=== PATIENT | male | born 1965 | race Caucasian/White ===

== ENCOUNTER 2018-05-06 16:29 | Observation (INO) ==
[2018-05-06] MEDS ORDERED: Aspirin 325 MG TABLET PO ONE (16:57)
[2018-05-06] MEDS: Nitroglycerin 0.4 MG TAB.SUBL SL PRN ×2 (17:03→22:51)
--- NOTE | 2018-05-06 17:06 | Emergency Department Note ---
Disposition Clinical Impression: Chest pain Qualifiers: Chest pain type: unspecified Qualified Code(s): R07.9 - Chest pain, unspecified Disposition: Admitted As Inpatient Condition: Good Chest Pain HPI - General Chief Complaint: ED Chest Pain Stated Complaint: CP Time Seen by Provider: 05/06/18 16:32 Source: patient, family Mode of arrival: private vehicle Limitations: no limitations Vital Signs Reviewed: Yes Nursing Notes Reviewed: Yes - History of Present Illness HPI Narrative: 53-year-old male history of obstructive sleep apnea wearing CPAP at night, hypertension who presents to the ER with chest pain. The patient states he has had pain for the last 3 weeks. He initially saw his primary care provider who placed him on a Holter monitor for 2 weeks. He states that he has had baseline chest pain but that will worsen daily. No inciting events. He can be at rest or exerting himself. It lasts for up to an hour and then goes away. Reports being short of breath during that time and nauseous. He felt dizzy today as well. Patient improved at time of arrival however still present. Reports catheterization roughly 10 years ago without intervention. No history of DVT or PE. No other complaints. Pt complaint: chest pain Onset (ago): week(s) Duration: intermittent Pain Location: left chest Severity: moderate Severity scale (1-10): 4 Quality: heaviness Pain Radiation: LUE Improves with: nothing Worsens with: nothing Associated symptoms: Reports: nausea, dyspnea Treatments prior to arrival chest pain: none - Related Data On Oral Contraceptives: No Home Medications Medication Instructions Recorded Confirmed ALPRAZolam [Xanax 1 MG Tablet] 1 mg PO BID PRN 05/06/18 05/06/18 Lisinopril [Zestril] 5 mg PO DAILY 05/06/18 05/06/18 [place] Carbonate ER [Eskalith] 600 mg PO HS 05/06/18 05/06/18 [place] Carbonate ER [Eskalith] 600 mg PO QAM 05/06/18 05/06/18 Omeprazole [PriLOSEC] 20 mg PO DAILY 05/06/18 05/06/18 Allergies Allergy/AdvReac Type Severity Reaction Status Date / Time No Known Allergies Allergy Unverified 01/13/18 08:30 All systems ED: reviewed and negative except as stated. Cardiovascular: Reports: chest pain Respiratory: Reports: dyspnea Gastrointestinal: Reports: nausea. Denies: abdominal pain, vomiting Musculoskeletal: Denies: back pain, neck pain Chest Pain PMH - Past Medical History Medical history: Reports: hypertension Psychiatric history: Reports: bipolar - Social History Smoking Status: Former smoker Alcohol use: Reports: none Drug use: Reports: none Physical Exam - General Limitations: no limitations General appearance: alert, in no apparent distress - Head Head exam: atraumatic, normocephalic - Eye Eye exam: Present: normal appearance - ENT ENT exam: normal exam - Neck Neck exam: Present: normal inspection - Chest Chest inspection: Present: normal inspection, symmetric chest wall rise - Respiratory Respiratory exam: Present: normal lung sounds bilaterally - Cardiovascular Cardiovascular exam: Present: regular rate, normal rhythm, normal heart sounds - Abdominal Exam Abdominal exam: Present: soft, Non-Tender. Absent: tenderness, distention, rigidity - Extremities Exam Extremities exam: Present: normal inspection, full ROM - Expanded Upper Extremity Exam Shoulder exam: Present: normal inspection, full ROM Arm exam: Present: normal inspection, full ROM Elbow exam: Present: normal inspection, full ROM Forearm/Wrist exam: Present: normal inspection, full ROM Hand exam: Present: normal inspection, full ROM - Expanded Lower Extremity Exam Hip/Pelvis exam: Present: normal inspection, full ROM Upper leg exam: Present: normal inspection, full ROM Knee exam: Present: normal inspection, full ROM Lower leg exam: Present: normal inspection, full ROM Ankle exam: Present: normal inspection, full ROM Foot/toe exam: Present: normal inspection, full ROM - Skin Skin exam: Present: warm, dry Course Course Narrative: Patient seen and examined. Vital signs reviewed. Continues to have some mild chest pain here. We will give him aspirin and nitroglycerin, EKG, chest x-ray and labs including troponin. - Reevaluation(s) Reevaluation #1: Chest pain resolved with one nitroglycerin. Plan to admit for further evaluation. Vital Signs Temperature 98.7 F 05/06/18 16:33 Pulse Rate 92 05/06/18 16:33 Respiratory Rate 18 05/06/18 16:33 Blood Pressure 130/91 05/06/18 16:33 O2 Sat by Pulse Oximetry 98 05/06/18 16:33 Temperature 97.7 F 05/06/18 19:39 Pulse Rate 71 05/06/18 19:39 Respiratory Rate 16 05/06/18 19:39 Blood Pressure 114/82 05/06/18 19:39 O2 Sat by Pulse Oximetry 97 05/06/18 19:39 Oxygen Delivery Oxygen Delivery Room Air Chest Pain - MDM Narrative Medical decision making narrative: 53-year-old male presenting with chest pain for 3 weeks with intermittent nature. He is well-appearing here. His EKG is unremarkable. Chest x-ray with concerns for left lower opacity felt to be atelectasis in this setting. His pain resolved with one nitroglycerin. His labs reviewed including a normal troponin. Given the patient's history and number but with interventions patient admitted to the hospital for further evaluation. - Lab Data Lab results reviewed: Yes I reviewed the patient's lab results. Result diagrams: 05/06/18 16:45 05/06/18 16:45 Lab Results 05/06/18 05/06/18 05/06/18 Range/Units 16:45 16:45 16:45 WBC 7.3 (4.3-11.1) K/mcL RBC 5.22 (4.19-5.50) M/mcL Hgb 15.7 (12.9-16.9) g/dL Hct 46.9 (37.5-50.1) % MCV 89.8 (83.0-100.0) fL MCH 30.1 (28.0-33.3) pg MCHC 33.5 (31.6-35.5) g/dL RDW 12.2 (11.5-14.5) % Plt Count 195 (140-400) K/mcL MPV 10.2 (9.4-12.4) fL Immature Gran % 0.3 (0-4) % Seg Neutrophils % 71.0 % Lymphocytes % 18.8 % Monocytes % 6.5 % Eosinophils % 2.9 % Basophils % 0.5 % Neutrophils # 5.2 (1.6-8.9) K/mcL Lymphocytes # 1.4 (0.6-4.6) K/mcL Monocytes # 0.5 (0.0-1.3) K/mcL Eosinophils # 0.2 (0.0-0.6) K/mcL Basophils # 0.0 (0.0-0.2) K/mcL Sodium 137 (136-145) mEq/L Potassium 3.8 (3.5-5.1) mEq/L Chloride 111 H (98-107) mEq/L Carbon Dioxide 21 L (23-29) mEq/L BUN 15 (6-20) mg/dL Creatinine 1.39 H (0.70-1.30) mg/dL Est GFR ( Amer) > 60 (> 60) Est GFR (Non-Af Amer) 53 L (> 60) BUN/Creatinine Ratio 11 (6-26) Glucose 106 H (70-105) mg/dL Calculated Osmolality 285 (280-300) Calcium 11.0 H (8.6-10.3) mg/dL Troponin I < 0.03 (< 0.04) ng/mL B-Natriuretic Peptide 6 (Less than 100) pg/mL - Radiology Data Radiology results reviewed: Yes I reviewed the patient's radiology results. Chest X-Ray 05/06/18 16:33 IMPRESSION: Mild left basilar opacity, atelectasis is favored, less likely pneumonia. D/ / Francisco Javier Shah MD / Francisco Javier Shah MD Interpreting Provider: Francisco Javier Shah MD - EKG Data EKG attestation: Yes I reviewed and interpreted this EKG. EKG results narrative: EKG demonstrates sinus rhythm with rate of 88 beats or minute. Normal axis. Normal intervals. Normal R-wave progression. Nonspecific ST-T wave flattening in the inferior leads. No gross ST elevations or depressions. No acute ischemic findings. Heart Score - Score History: Moderately Suspicious EKG: Normal Age: 45-65 Risk Factors: 1-2 risk factors Troponin: Less than normal limit HEART Score Total: 3 S.B.A.R. - S.B.A.R. Situation: Demographics, MOA Background: Presenting Complaint, Relevant PMH, Meds, & Allergies Assessment: Course and respsone to treatment, Exam Concerns, Patient/Family Expectation, Pertinant Lab Results Recommendation: Barrier(s) to disposition, Recommendation based on pending studies, treatments, or consults S.B.AHortencia Report Given to: Dr. Jessie Montiel Repor Time: 18:23 Attestation Statement - Attestation Attestation: I Heri Rosales, examined this patient and my medical decision-making was reviewed with the MANUFACTURING ASSOCIATE/PA/Advanced Practice Nurse/Resident Physician. I agree with the documented findings, disposition and treatment plan as described except to the extent set forth below. 53-year-old male presents emergency Department with concerns of intermittent chest pain for the past month. Patient states the pain is an aching in the left center chest which radiates to the left upper extremity. Associated with nausea, diaphoresis and shortness of breath. Patient states the pain will occur at rest or with exertion. Patient denies fever, chills, abdominal pain, diarrhea, recent trauma. Patient had pain upon arrival to the emergency department. It improved with nitroglycerin. EKG did not show evidence of STEMI. Initial troponin was negative. Patient will be admitted to the hospital for further care and evaluation.
[2018-05-06 17:24] LABS: Basophils % 0.5 %; Eosinophils # 0.2 K/mcL (0.0-0.6); Eosinophils % 2.9 %; Hematocrit 46.9 % (37.5-50.1); Hemoglobin 15.7 g/dL (12.9-16.9); Immature Granulocytes % 0.3 % (0-4); Lymphocytes # 1.4 K/mcL (0.6-4.6); Lymphocytes % 18.8 %; Mean Corpuscular HGB Conc 33.5 g/dL (31.6-35.5); Mean Corpuscular Hemoglobin 30.1 pg (28.0-33.3); Mean Corpuscular Volume 89.8 fL (83.0-100.0); Mean Platelet Volume 10.2 fL (9.4-12.4); Monocytes # 0.5 K/mcL (0.0-1.3); Monocytes % 6.5 %; Neutrophils # 5.2 K/mcL (1.6-8.9); Platelet Count 195 K/mcL (140-400); Red Blood Count 5.22 M/mcL (4.19-5.50); Red Cell Distribution Width 12.2 % (11.5-14.5)
[2018-05-06 17:45] LABS: Troponin I < 0.03 ng/mL (< 0.04)
[2018-05-06 17:46] LABS: BUN/Creatinine Ratio 11 (6-26); Blood Urea Nitrogen 15 mg/dL (6-20); Carbon Dioxide 21 mEq/L (23-29); Chloride 111 mEq/L (98-107); Glucose 106 mg/dL (70-105); Osmolality,Calculated 285 (280-300); Potassium 3.8 mEq/L (3.5-5.1); Sodium 137 mEq/L (136-145); eGFR For Non-African Americans 53 (> 60)
[2018-05-06] MEDS ORDERED: Naloxone 0.4 MG/ML INJ IVP PRN (21:37)
--- NOTE | 2018-05-06 22:19 | Internal Med History&Physical ---
Date of Encounter: 05/07/18 Time of Encounter: 20:57 Internal Medicine - H&P: HPI Chief complaint: Chest pain Admitted From: Emergency Dept Plans for Post Hospital Care: Home History of present illness: Mr. Mark is a 53 year old male Patient presented to the emergency room with a 3 week history of intermittent chest pain. He says about 3 weeks ago he had his blood pressure medicine adjusted and his heart rate went down and stayed there. He correlates this with his now pain in his chest. It is been off and on for the last few weeks but he states that today he just did not feel very comfortable, [place] farm this [place] and had left-sided chest pain with associated shortness of breath. [address] and upon arrival he says that he was fighting for air, and could not talk on the phone. His noticed his breathing and indicated that he go to the emergency room. He describes the pain as sharp and also had associated left arm pain as well. He attempted breathing treatments at home but they did not help. In the emergency room patient's CBC and CMP were within normal limits. Troponin was undetectable. Calcium was 11.0. Chest x-ray showed mild left basilar opacity likely atelectasis less likely pneumonia. EKG was unremarkable normal sinus rhythm with no ST changes. He was given nitroglycerin and he states that he had instant relief and had not felt that good in over 6 months. He had a stress test back in January which showed ejection fraction of 63% and no ischemic changes. He an echocardiogram in September of this year that showed ejection fraction 65 with normal motion observed. His a history of BRAXTON and uses CPAP at night. Upon my assessment patient is resting comfortably in the hospital bed. He says that currently his pain is slightly returning but declines nitroglycerin at this time and would rather start using his CPAP machine. He says he feels better once he starts using his CPAP as he gets lots of oxygen. He denies nausea, vomiting, diarrhea, constipation and abdominal pain. Past Med Surg Social Fam HX - Past Medical History Medical history: hypertension Psychiatric history: bipolar - Past Surgical History Surgical History: appendectomy Additional surgical history: back surgery (bone spurs) - Social History Smoking Status: Former smoker Smokeless Tobacco Status: No Alcohol use: none Drug use: none - Family History Mother Living Status: Age at : 74 Hx Family Endocrine Disorder: Yes (Diabetes) Father Age: 80 Living Status: Still Living Hx Family Cancer: Yes (prostate cancer) Internal Medicine - H&P: Meds ALPRAZolam [Xanax 1 MG Tablet] 1 mg PO BID PRN 05/06/18 [History] Lisinopril [Zestril] 5 mg PO DAILY 05/06/18 [History] [place] Carbonate ER [Eskalith] 600 mg PO HS 05/06/18 [History] [place] Carbonate ER [Eskalith] 600 mg PO QAM 05/06/18 [History] Omeprazole [PriLOSEC] 20 mg PO DAILY 05/06/18 [History] 3 Allergy/AdvReac Type Severity Reaction Status Date / Time No Known Allergies Allergy Unverified 01/13/18 08:30 All Systems PM: A 10-system review of systems was performed and is negative for pertinent findings except as documented above in the HPI. - Constitutional Vitals: Temp Pulse Resp BP Pulse Ox 97.7 F 71 16 114/82 97 05/06/18 19:39 05/06/18 19:39 05/06/18 19:39 05/06/18 19:39 05/06/18 19:39 General appearance: Present: cooperative, A&O X 3, pleasant, no acute distress, answers questions appropriately Exam: as above - Head Head exam: Present: normal inspection - Eye Eye exam: Present: EOMI, normal appearance - Respiratory Respiratory exam: Present: CTAB. Absent: chest wall tenderness, decreased breath sounds, respiratory distress, wheezes - Cardiovascular Cardiovascular exam: Present: bradycardia, RRR. Absent: diastolic murmur, systolic murmur - GI/Abdominal GI/Abdominal exam: Present: normal bowel sounds, soft. Absent: tenderness - Extremities Exam Extremities exam: Present: warm, radial pulses palpable and symmetrical. Absent : calf tenderness, pedal edema, tenderness - Neurological Exam Neurological exam: Present: no focal deficits, strengths equal and symetr throughout. Absent: motor sensory deficit, facial droop, speech deficit - Skin Skin exam: Present: dry, normal color, warm Internal Med - H&P Results - Labs CBC & Chem 7: 05/07/18 04:12 05/07/18 04:12 - Assessment and plan (1) Chest pain Current Visit: Yes Status: Acute Assessment and plan: Resolved after 1 dose of nitroglycerin. EKG showed no ischemic changes, he has had recent workup including echocardiogram and stress test within the last few months. Troponins negative thus far. Patient did have notable bradycardia through the night with a rate into the low 40s. Unclear if this contributes to the patient's chest pain. Continue to trend troponins test manager Cardiology consult in the morning Qualifiers: Chest pain type: unspecified Qualified Code(s): R07.9 - Chest pain, unspecified (2) Bradycardia Current Visit: Yes Status: Acute Assessment and plan: Could be secondary to lithium which patient takes for his by Polar disorder. Patient has been in the low 40s during the night. 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 Holding lithium until cardiology evaluates patient for bradycardia Qualifiers: Active/Remission status: currently active Current episode severity: unspecified Qualified Code(s): F31.60 - Bipolar disorder, current episode mixed, unspecified (4) DVT prophylaxis Current Visit: Yes Status: Acute Assessment and plan: Heparin subcutaneous - Time Spent With Patient Total time spent is greater than 50% in coordination of care (as documented) at patient's floor/unit and/or counseling patient: Greater than 35 minutes
[2018-05-07 05:44] LABS: Hematocrit 43.7 % (37.5-50.1); Hemoglobin 14.4 g/dL (12.9-16.9); Mean Corpuscular Hemoglobin 30.1 pg (28.0-33.3); Mean Corpuscular Volume 91.2 fL (83.0-100.0); Mean Platelet Volume 10.4 fL (9.4-12.4); Platelet Count 164 K/mcL (140-400); Red Blood Count 4.79 M/mcL (4.19-5.50); Red Cell Distribution Width 12.2 % (11.5-14.5)
[2018-05-07 05:59] LABS: BUN/Creatinine Ratio 10 (6-26); Blood Urea Nitrogen 15 mg/dL (6-20); Calcium 10.7 mg/dL (8.6-10.3); Carbon Dioxide 21 mEq/L (23-29); Chloride 111 mEq/L (98-107); Glucose 103 mg/dL (70-105); Osmolality,Calculated 289 (280-300); Sodium 139 mEq/L (136-145); eGFR For Non-African Americans 52 (> 60)
[2018-05-07] MEDS: *HR* Heparin 5,000 UNIT/ML VIAL SQ SCH ×2 (06:07→16:13)
--- NOTE | 2018-05-07 08:46 | Internal Med Progress Note ---
Hospitalist Progress Note - Encounter Date of Encounter: 05/07/18 Time of Encounter: 08:43 - Subjective Interval History: No acute changes and patient condition overnight, continuing to report weakness and fatigue with activity. Denies any chest pain. - Exam Vitals: Temp Pulse Resp BP Pulse Ox 97.4 F L 61 16 128/80 96 05/07/18 06:30 05/07/18 08:33 05/07/18 06:30 05/07/18 06:30 05/07/18 08:33 Exam: PHYSICAL EXAMINATION: GENERAL: The patient is a well-developed, well-nourished male in no apparent distress. He is alert and oriented x3. HEENT: Head is normocephalic and atraumatic. Extraocular muscles are intact. Pupils are equal, round, and reactive to light and accommodation. NECK: Supple. No carotid bruits. No lymphadenopathy or thyromegaly. LUNGS: Clear to auscultation b/l ap&l. HEART: Irregular rate and rhythm, bradycardia without murmur. ABDOMEN: Soft, nontender, and nondistended. Positive bowel sounds. No hepatosplenomegaly was noted. EXTREMITIES: Without any cyanosis, clubbing, rash, lesions or edema. NEUROLOGIC: Cranial nerves II through XII are grossly intact. - Assessment and Plan (1) Chest pain Current Visit: Yes Status: Acute Assessment and Plan: Presented to the ED with chest pain; associated signs and symptoms include shortness of breath, diaphoresis, fatigue and dizziness Resolved after 1 dose of nitroglycerin CG without any ischemic changes Troponins negative 3 less than 0.03 Noted to have symptomatic bradycardia heart rate in the 30s-50s Has had a recent workup including stress test and echocardiogram ; stress test without ischemic changes 05/07--clinically the patient is stable, denies any chest pain, shortness of breath. He does admit to weakness fatigue and dizziness with activity. Cardiology to see in consultation; appreciate recommendations. Discussed with Dr. Handy this morning. Continue youth nutritional monitor. Holding lithium until cardiology evaluation. [place] level within therapeutic range. (2) Bipolar disorder Current Visit: Yes Status: Acute Assessment and Plan: continue lithium (3) Bradycardia Current Visit: Yes Status: Acute Assessment and Plan: symptomatic bradycardia hr in the high 30's a.d 50's overnight cont tele consult to cardio continue holding lithium DVT Prophylaxis: SC heparin - Time Spent with Patient Total time spent is greater than 50% in coordination of care (as documented) at patient's floor/unit and/or counseling patient: less than 15 minutes Plan of Care Discussed with: patient Internal Medicine: Result - Labs CBC & Chem 7: 05/07/18 04:12 05/07/18 04:12 Labs: Short CBC 05/07/18 Range/Units 04:12 WBC 7.0 (4.3-11.1) K/mcL Hgb 14.4 (12.9-16.9) g/dL Hct 43.7 (37.5-50.1) % Plt Count 164 (140-400) K/mcL BMP 05/07/18 04:12 Sodium 139 Potassium 4.0 Chloride 111 H Carbon Dioxide 21 L BUN 15 Creatinine 1.43 H Glucose 103 Calcium 10.7 H Cardiac Enzymes 05/06/18 05/07/18 Range/Units 22:23 04:12 Troponin I < 0.03 < 0.03 (< 0.04) ng/mL Consult Discharge Plan - Plan Referrals: Jovanni Stevens MD [Primary Care Provider] - (Requested a follow up appointment in 7-10 days. ) (1) Chest pain Qualifiers: Chest pain type: unspecified Qualified Code(s): R07.9 - Chest pain, unspecified (2) Bipolar disorder Qualifiers: Active/Remission status: currently active Current episode severity: unspecified Qualified Code(s): F31.60 - Bipolar disorder, current episode mixed , unspecified
[2018-05-07] MEDS ORDERED: Lithium Carbonate ER 450 MG TABLET.ER PO SCH ×2 (09:00→21:00)
[2018-05-07 09:31] LABS: Thyroid Stimulating Hormone 2.855 mcIU/mL (0.340-5.600)
--- NOTE | 2018-05-07 09:49 | Cardiology Consult Note ---
Date of Encounter: 05/07/18 Time of Encounter: 09:48 Assessment and Plan (1) Chest pain Current Visit: Yes Status: Acute Chest pain with atypical and typical features. Patient thinks it correlates with low heart rates. Also notes increased dyspnea on exertion. Troponin negative x3. EKG shows SR with no acute ST changes. Stress test 01/2018 negative for ischemia. TTE 09/2017 EF 65%, mild LVH. Cardiac risk factors include HTN and prior tobacco use. Holter monitor pending. He states that he kept a detailed diary. We will assess correlation of symptoms. If no significant correlation will consider [facility]. Qualifiers: Chest pain type: unspecified Qualified Code(s): R07.9 - Chest pain, unspecified (2) Bradycardia Current Visit: Yes Status: Acute Noted to have bradycardia on my exam and c/o chest pressure. HR mid 40's. Telemetry review shows avg HR 50 bpm. Lowest HR 35 bpm at 0356. HR below 40 are nocturnal. No heart block seen. [place] held by primary team due to potential side effect of bradycardia. Avoid av sandeep roz. Holter monitor pending. Discussion w patient/family: The assessment and plan as outlined above was discussed with the patient and/or family members who expressed understanding and agreement. All questions were answered. Thank you for involving us in the care of your patient. Please call with any questions. History of Present Illness Consult date: 05/07/18 Requesting physician: Deonte Osborne Consult reason: Chest pain, bradycardia Chief complaint: Chest discomfort, dizziness, dyspnea on exertion History of present illness: Mr. Mark is a 53 year old male with past medical history of HTN and bipolar disease presents with the c/o chest pain and dyspnea for 3-4 weeks. notes he is very SOB with any activity. His dizziness is on-going for over a year and occurs at rest. He was noted to have low HR in the 40's in the past but did not have symptoms then. He feels like his chest is tight whenever he notices his HR is low. He just completed a 2 week holter monitor for bradycardia seen by his PCP. Holter monitor results pending. He underwent stress test and TTE in January of this year for similar symptoms with no concerning finding. He is on lithium for his bipolar disease and it is currently on hold by primary team to see if his HR will improve. Past Med Surg Social Fam HX - Past Medical History Attestation: Yes The following information was validated with the patient. Medical history: hypertension Psychiatric history: bipolar - Past Surgical History Surgical History: appendectomy Additional surgical history: back surgery (bone spurs) - Social History Smoking Status: Former smoker Smokeless Tobacco Status: No Alcohol use: none Drug use: none - Family History Mother Living Status: Age at : 74 Hx Family Endocrine Disorder: Yes (Diabetes) Father Age: 80 Living Status: Still Living Hx Family Cancer: Yes (prostate cancer) Medications and Allergies ALPRAZolam [Xanax 1 MG Tablet] 1 mg PO BID PRN 05/06/18 [History] Lisinopril [Zestril] 5 mg PO DAILY 05/06/18 [History] Omeprazole [PriLOSEC] 20 mg PO DAILY 05/06/18 [History] [place] Carbonate ER [Lithobid] 600 mg PO QAM 05/07/18 [History] [place] Carbonate ER [Lithobid] 900 mg PO HS 05/07/18 [History] 3 Allergy/AdvReac Type Severity Reaction Status Date / Time No Known Allergies Allergy Unverified 01/13/18 08:30 All Systems Review: The remainder of the systems were reviewed and are negative Physical Examination Vital Signs, Last 4 Hours Temp Pulse Resp BP Pulse Ox 05/07/18 08:33 61 96 05/07/18 06:30 97.4 F L 40 16 128/80 98 General: Conversant, No Apparent Distress HEENT: Atraumatic, Normocephaly, Mucus Membranes Moist Neck: No JVD, Normal carotid pulses Cardiac: Reg Rate and Rhythm, Normal S1 and S2, No Murmur Lungs: Normal Breath Sounds, No Wheeze, Rales, Rhonchi Neuro: Alert and responsive, No focal deficits noted Abdomen: Soft, Non-Tender Skin: No rashes noted on visualized skin Musculoskeletal: No Chest Wall Tenderness Extremities: No Clubbing, No Cyanosis, No Edema, Normal Pulses Results 05/07/18 04:12 05/07/18 04:12 Lab Results 05/06/18 05/07/18 05/07/18 22:23 04:12 04:12 WBC 7.0 Hgb 14.4 Hct 43.7 Plt Count 164 Sodium Potassium Chloride Carbon Dioxide BUN Creatinine Glucose Calcium Troponin I < 0.03 < 0.03 TSH 05/07/18 04:12 WBC Hgb Hct Plt Count Sodium 139 Potassium 4.0 Chloride 111 H Carbon Dioxide 21 L BUN 15 Creatinine 1.43 H Glucose 103 Calcium 10.7 H Troponin I TSH 2.855 - Imaging and Cardiology Echo: report reviewed - EKG Interpretation EKG results cardiology: personally reviewed (SR, no acute ST changes.) Consult Discharge Plan - Plan Referrals: Jovanni Stevens MD [Primary Care Provider] - (Requested a follow up appointment in 7-10 days. )
[2018-05-07] MEDS: 0.9 % Sodium Chloride 1,000 ML IVC SCH ×2 (12:38→20:42)
--- NOTE | 2018-05-07 14:38 | Electrocardiograph Report ---
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
[2018-05-07] MEDS ORDERED: Heparin 1,000 UNITS/500 mL 500 ML ONE (17:48)
[2018-05-07] MEDS ORDERED: 0.9 % Sodium Chloride 1,000 ML ONE ×2 (17:48→17:54)
[2018-05-07] MEDS ORDERED: Nitroglycerin 1,000 MCG/10 ML VIAL IV ONE (17:49)
[2018-05-07] MEDS ORDERED: *HR* Heparin 10,000 UNIT/10 ML VIAL ONE (17:49)
[2018-05-07] MEDS ORDERED: ISOVUE-370 200 ML INFUS..BTL IV ONE (17:49)
[2018-05-07] MEDS ORDERED: *HR* Midazolam HCl 2 MG/2 ML VIAL ONE (18:00)
--- NOTE | 2018-05-07 18:17 | Pre-Sedation Evaluation ---
Pre-sedation evaluation - Pre-sedation checklist Date of procedure: 05/07/18 Procedure: [facility] Recent Vitals: Last Vital Signs Temp 98.1 F 05/07/18 16:21 Pulse 67 05/07/18 16:21 Resp 16 05/07/18 16:21 BP 146/83 05/07/18 16:21 Pulse Ox 98 05/07/18 16:21 Previous reaction to sedatives/anesthetics: No Dietary Status: NPO after Midnight Airway Assessment: Patient can open mouth completely, TMJ function normal Dentition: full dentition Possible difficult airway: No ASA Classification *see protocol: CLASS IV-Severe systemic disease/constant threat to pt's life Plan of Care: Pt appropriate candidate for procedure/moderate/conscious sedation , Risks/benefits of procedure/sedation discussed w/ patient/family, If not NPO; Risk of intake outweiged by necessity to perform procedure Cardiac Registry (Cardio Only) - Functional Capacity Functional Capacity: >=4 METS without symptoms - Clincal Frailty Scale Clinical Frailty Scale: Managing Well
--- NOTE | 2018-05-07 18:59 | Invasive Diagnostic Lab Proc ---
Name: Rohan Mark Date of Study: 05/07/2018 Date: 1965 Ht: 72.8in Medical Record#: [id number] Age: 53 Wt: 251.33lb Gender: Male BSA: 2.37 Order #: [id number] BMI: 33.31 Physicians Procedure Physician: Sage Marinelli DO Referring MD: Referring MD: Staff Name Position Time In AliciaDickson RN Monitor 06:08 PM Chuck Carrillo RN Steward Racetrack 06:08 PM Logan Turner RT (R) Scrub 06:08 PM Procedures Performed Procedure L HRT ARTERY/VENTRICLE ANGIO Pre-Procedure Checklist Informed consent is complete signed and on chart. H&P is on chart. ID band is on and ID verified with patient. Patient NPO for procedure The procedure was described for the patient and questions were answered. Blood Pressure: 136/84 ECG is on chart. Rhythm: Sinus Bradycardia Plan of Care Patient will tolerate the procedure without complications. Adequate level of comfort will be maintained. Hemodynamics will remain stable Patient will recover from procedure without complications. Respiratory function will be maintained. Cardiac rhythm will remain stable. Patient temperature will be maintained. Patient and/or family have verbalized understanding of the procedure. Patient Education Intravenous Access Time IV Size Location DC'd Fluid/Drip Rate Units RN 18g 1 /" Patent On Arrival Lt Antecubital 0.9NaCl Chuck Carrillo RN Allergies No Known Allergies NKDA NO KNOWN DRUG ALLERGIES Vital Signs Time BP (mmHg) HR (bpm) O2 Sat. RR (bpm) LOC 06:09 PM / % 5 = Fully awake and oriented or at pre-proc level 06:11 PM 159 / 91 50 100 % 15 06:16 PM 161 / 104 77 100 % 19 06:21 PM 152 / 100 58 100 % 12 06:26 PM 154 / 100 56 100 % 14 06:31 PM 152 / 106 68 100 % 8 06:36 PM 165 / 109 68 100 % 13 06:41 PM 149 / 110 69 100 % 19 06:46 PM 158 / 104 69 99 % 10 06:51 PM 152 / 103 54 % 15 Procedural Medications Time Medication Dose Units Method Given By 06:09 PM Oxygen 2 L/min nasal cannula Chuck Carrillo RN 06:17 PM Versed 2 mg Intravenous Chuck Carrillo RN 06:23 PM Lidocaine 2% 10 ml Subcutaneous Sage Marinelli DO ASA Classification: CLASS IV- Severe systemic that is constant threat to patient's life Tami Score Preprocedure Postprocedure Activity 2- Moves 4 extremities sustained head lift Activity 2- Moves 4 extremities sustained head lift Circulation 2- SBP +/= 20 points of pre-anesthetic level Circulation 2- SBP +/= 20 points of pre-anesthetic level Consciousness 2- Awake and alert oriented x 3 Consciousness 2- Awake and alert oriented x 3 O2 Saturation 2- Able to maintain O2 satruation of 92% on room air O2 Saturation 2- Able to maintain O2 satruation of 92% on room air Respiratory 2- Able to deep breathe and cough well Respiratory 2- Able to deep breathe and cough well Total Score 10 Total Score 10 Contrast Agent: Isovue Diagnostic Contrast: 100 ml Total Contrast: 100 ml Fluoro Dose: 4657 mGy Procedure Log Time Note Enter By 06:08 PM Pt arrived to labor specialist 2 at 18:08 ced 06:08 PM Dickson Vargas RN Position: Monitor Time in: 18::08 PM Chuck Carrillo RN Position: Steward Racetrack Time in: 18: 06:08 PM Logan Turner RT (R) Position: Scrub Time in: 18:08 06:08 PM Patient charges- Angio tray pack, Navilyst 3mm J, Pulse Oximetry and ACIST tubing and transducer cedwards 06:08 PM Hair removed from procedure site in procedure lab using clippers. Bilateral groin prepped with Chloraprep by Dickson Vargas RN, then patient was draped. Skin intact. :08 PM Physician arrived 18: 06:08 PM Jorge completed 06:08 PM Sign in performed according to hospital policy. Informed consent was obtained. 06:08 PM Procedure start 18:08 06:08 PM Time: 18:08 Patient comfortable and pain free: Yes : PM Time: 18:09LOC: 5 = Fully awake and oriented or at pre-proc level cedwards 06:09 PM Time: 18:09 Oxygen on at 2 L/min per nasal cannula by Chuck Carrillo RN cedwards 06:09 PM Clinical Presentation: Unstable angina cedwards 06:10 PM CathStat 06:10 PM Vitals capture started with the following parameters, Patient=Adult, Interval=5 min, Initial Ypqewcri=520 mmHg, Deflation Rate=5 mmHg, Cuff placed on Right Arm 06:11 PM HR=50 bpm, AXWY=818/91 mmhg, TmW5=310.0 %, Resp=15 B/min, Comment=nsr 06:16 PM HR=77 bpm, PKVM=815/104 mmhg, EvS1=206.0 %, Resp=19 B/min, Comment=nsr 06:17 PM Pressure channel 2 zeroed. 06:17 PM Time: 18:17 Versed 2 mg Intravenous Given by Chuck Carrillo RN [email or web address] 06:21 PM HR=58 bpm, JMDF=611/100 mmhg, TxU2=439.0 %, Resp=12 B/min 06:22 PM Time out was performed according to hospital policy. Conscious sedation and anesthesia was achieved (see medication log with in this report above) [email or web address] 06:23 PM Time: 18:23 10 ml Lidocaine 2% to right groin Subcutaneous Given by Sage Marinelli DO [email or web address] 06:26 PM HR=56 bpm, APOO=284/100 mmhg, DjQ5=750.0 %, Resp=14 B/min 06:26 PM Micro-Introducer Kit utilized for sheath placement jcallan 06:26 PM Access obtained by percutaneous puncture. 6Fr 10cm Terumo [place] sheath placed in right Femoral artery. [id number] [email or web address] 06:26 PM 6Fr FR 4 catheter inserted over the wire [facility] [email or web address] 06:27 PM Recorded Pressure: LV, HR=56, Condition=Condition 1 (Left Ventricle) LV 76/-38/-27 06:27 PM Recorded Pressure: LV, Ao, HR=67, Condition=Condition 1 (Left Ventricle) LV 148/-4/4, (Aorta) Ao 154/88/116 06:27 PM Catheter crossed the aortic valve and was selectively placed in the left ventricle. Pressures recorded on pullback for left heart catheterization. [email or web address] 06:27 PM Hand injected LV. [email or web address] 06:28 PM repositioned to RCA [email or web address] 06:28 PM RCA angiography performed in multiple views. [email or web address] 06:28 PM Catheter removed [email or web address] 06:29 PM 6Fr FL 4 catheter inserted over the wire DNC jcallihan 06:29 PM Recorded Pressure: Ao, HR=71, Condition=Condition 1 (Aorta) Ao 140/85/110 06:30 PM LCA angiography performed in multiple views. [email or web address] 06:31 PM HR=68 bpm, PWAA=437/106 mmhg, ToV4=769.0 %, Resp=8 B/min, Comment=nsr 06:31 PM Catheter removed [email or web address] 06:32 PM Coronary Dominance: right [email or web address] 06:32 PM Right groin shot obtained, contrast injected. [email or web address] 06:32 PM Wire removed [email or web address] 06:32 PM Procedure completed at 18:32 05/07/2018 [email or web address] 06:32 PM Did you address AJIT flow and Dominance? Yes [email or web address] 06:33 PM Sign out completed: Radiation Dose 406 mGy, 4657 cGy/cm2 Fluoro Time: 1.5 Isovue 370 - 200ml contrast 100 ml given by Sage Marinelli DO. Complications: None. 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 Cardiac Rehab Consult needed: NoConfirmed administered medications: Yes allihan 06:33 PM Isovue 370 - 200ml,1 Bottle(s) used. [email or web address] 06:33 PM Sheath left in place to be pulled on floor/holding areaV+Pad jcallihan 06:34 PM Estimated Blood Loss: minimal [email or web address] 06:34 PM Post ECG NSR [email or web address] 06:34 PM Post Blood Pressure 152/106 [email or web address] 06:36 PM HR=68 bpm, WSYP=494/109 mmhg, XdQ4=777.0 %, Resp=13 B/min, Comment=nsr 06:36 PM Information taught Cardiac Cath and V+ Pad jcallihan 06:36 PM Education needs Procedure, Plan of Care, and Responsibilities of Patient in Care [email or web address] 06:36 PM Learning barriers :None [email or web address] 06:36 PM Education Methods Verbal [email or web address] 06:36 PM Education evaluation Able to repeat information [email or web address] 06:39 PM Report given to Araceli BETTS Pt taken to Room #38. 18:36 [email or web address] 06:40 PM Plavix, Effient or Brilinta given No [email or web address] 06:40 PM No family present, stayed in room. [email or web address] 06:40 PM Complications: None [email or web address] 06:41 PM HR=69 bpm, EJIX=229/110 mmhg, GfS8=690.0 %, Resp=19 B/min, Comment=nsr 06:44 PM ASA Class CLASS IV- Severe systemic that is constant threat to patient's life [email or web address] 06:46 PM HR=69 bpm, UUCC=482/104 mmhg, SpO2=99.0 %, Resp=10 B/min, Comment=nsr 06:51 PM HR=54 bpm, KKOP=609/103 mmhg, Resp=15 B/min 06:52 PM Site status No bleeding/hematoma - Rt Groin as reported by Logan Turner RT (R) at 18:52 [facility] 06:52 PM Opsite applied [facility] 06:52 PM Patient out of room: 18:52 [facility] Complications Complication None None Hemodynamics Pressures Site Systolic/A Wave Diastolic/V Wave Mean LV 76 -38 -27 LV 148 -4 4 AO 154 88 116 AO 140 85 110 Post Procedure Information Blood Pressure: 152/106 mmHg Rhythm: NSR Post procedural instructions were given Closure Device Time Device Success/Fail 05/07/2018 6:40:00 PM Manual Compression Successful Site Checks Time Location Status Staff Sheath In? Note 06:52 PM Rt Groin No bleeding/hematoma Logan Turner RT (R) Pulses Time Site Pre-Procedure Post-Procedure Note Bilateral DP 2+ 2+ Bilateral radial 2+ 2+ Updated by Dickson Vargas RN on 05/07/2018 6:53:54 PM electronically signed on 05/07/2018 6:54:17 PM with status of Final
[2018-05-08] MEDS: 0.9 % Sodium Chloride 1,000 ML IVC SCH ×4 (02:04→16:46)
[2018-05-08] MEDS: *HR* Heparin 5,000 UNIT/ML VIAL SQ SCH ×2 (05:40→16:45)
--- NOTE | 2018-05-08 12:37 | Cardiology Progress Note ---
Date of Encounter: 05/08/18 Time of Encounter: 11:30 Assessment and Plan (1) Chest pain Current Visit: Yes Status: Acute Chest pain with atypical and typical features. Patient thinks it correlates with low heart rates. Also notes increased dyspnea on exertion. Troponin negative x3. EKG shows SR with no acute ST changes. Stress test 01/2018 negative for ischemia. TTE 09/2017 EF 65%, mild LVH. Cardiac risk factors include HTN and prior tobacco use. [facility] completed yesterday and shows normal coronary arteries. EF 55%. 2 week event monitor reviewed. Diary returned with multiple symptoms including chest pain, SOB and dizziness. At times they correspond with bradycardia and at times with NSR. No heart block seen. Qualifiers: Chest pain type: unspecified Qualified Code(s): R07.9 - Chest pain, unspecified (2) Bradycardia Current Visit: Yes Status: Acute Noted to have bradycardia on admit. HR improved today in the 60-70. Noted to be in the upper thirties in the night and 40's this morning. Unclear if side effect from lithium. Consider psych consult. Telemetry review shows avg HR 63 bpm. Lowest HR 38 bpm at 0420. HR below 40 are nocturnal. No heart block seen. Avoid AV sandeep blockers. Discussion w patient/family: The assessment and plan as outlined above was discussed with the patient and/or family members who expressed understanding and agreement. All questions were answered. Thank you for involving us in the care of your patient. Please call with any questions. Subjective Principal diagnosis: Chest pain, bradycardia Interval history: Mr. Mark states he was disoriented this morning but is feeling better. HR improved. Objective Vital Signs, Last 4 Hours Temp Pulse Resp BP Pulse Ox 05/08/18 11:04 97.9 F 73 18 138/66 97 General: Conversant, No Apparent Distress HEENT: Atraumatic, Normocephaly, Mucus Membranes Moist Neck: No JVD, Normal carotid pulses Cardiac: Reg Rate and Rhythm, Normal S1 and S2, No Murmur Lungs: Normal Breath Sounds, No Wheeze, Rales, Rhonchi Neuro: Alert and responsive, No focal deficits noted Abdomen: Soft, Non-Tender Skin: No rashes noted on visualized skin Musculoskeletal: No Chest Wall Tenderness Extremities: No Clubbing, No Cyanosis, No Edema, Normal Pulses Results 05/07/18 04:12 10/04/18 04:12 Consult Discharge Plan - Plan Referrals: Jovanni Stevens MD [Primary Care Provider] - 05/14/18 11:30 am ()
[2018-05-08] MEDS ORDERED: Acetaminophen 325 MG TABLET PO PRN (13:30)
[2018-05-08] MEDS: ALPRAZolam 1 MG TABLET PO PRN (14:02)
--- NOTE | 2018-05-08 14:37 | Electrophysiology Consult Note ---
<Vinny Hardin - Last Filed: 05/08/18 14:27> Date of Encounter: 05/08/18 Time of Encounter: 14:27 Assessment and Plan (1) Bradycardia Current Visit: Yes Status: Acute Noted to have mild bradycardia during stay in upper 40-50. HR improved today in the 60-70's. Noted to be in the upper 30-40's during nocturnal hours only. Telemetry review shows avg HR 63 bpm. Lowest HR 38 bpm at 0420. HR below 40 are nocturnal. No heart block seen. 2 week event monitor reviewed. Intermittent bradycardia seen. Only significant bradycardia seen during nocturnal hours was auto triggered by device and not the patient. Most symptoms occur with NSR or mild bradycardia with HR in the 50 's. TSH is normal. No strong indication for PPM. Recommend out-patient monitoring. [place] held by primary team due to concern for bradycardia being a SE. Consider psych consult. Avoid AV sandeep blockers. Discussion w patient/family: The assessment and plan as outlined above was discussed with the patient and/or family members who expressed understanding and agreement. All questions were answered. Thank you for involving us in the care of your patient. Please call with any questions. History of Present Illness Consult date: 05/08/18 Requesting physician: Benita Marquez Consult reason: bradycardia Chief complaint: Chest pain, SOB, dizziness at times, nausea, low HR History of present illness: Mr. Mark is a 53 year old male with past medical history of HTN, BRAXTON on c- pap, and bipolar disorder. He is being evaluated for chest pain, SOB, and intermittent dizziness. Electrophysiology consulted for bradycardia. He states that he was monitoring his HR over the last few weeks and notes HR in the 40's - 50's. He wore a 2 week event monitor ordered by his PCP and turned it in two days ago. During his hospital stay he underwent LHC for persistent chest pain that showed normal coronary arteries, EF 55%. On my exam today he states that he had a bad morning due to feeling disoriented and nauseated when he woke up. He thinks it is due to not having all of his home medications. Prior cardiac testing: LHC 05/07/18- Normal coronary arteries. EF 55%. TTE 09/2017LVEF 65%. Mild LVH. Mild-moderate AR. MVP seen with mild MR. Past Med Surg Social Fam HX - Past Medical History Medical history: hypertension, other (BRAXTON) Psychiatric history: bipolar - Past Surgical History Surgical History: appendectomy Additional surgical history: back surgery (bone spurs) - Social History Smoking Status: Former smoker Smokeless Tobacco Status: No Alcohol use: none Drug use: none - Family History Mother Living Status: Age at : 74 Hx Family Endocrine Disorder: Yes (Diabetes) Father Age: 80 Living Status: Still Living Hx Family Cancer: Yes (prostate cancer) Medications and Allergies ALPRAZolam [Xanax 1 MG Tablet] 1 mg PO BID PRN 05/06/18 [History] Lisinopril [Zestril] 5 mg PO DAILY 05/06/18 [History] Omeprazole [PriLOSEC] 20 mg PO DAILY 05/06/18 [History] [place] Carbonate ER [Lithobid] 600 mg PO QAM 05/07/18 [History] [place] Carbonate ER [Lithobid] 900 mg PO HS 05/07/18 [History] 3 Allergy/AdvReac Type Severity Reaction Status Date / Time No Known Allergies Allergy Unverified 01/13/18 08:30 All Systems Review: The remainder of the systems were reviewed and are negative Physical Examination Vital Signs, Last 4 Hours Temp Pulse Resp BP Pulse Ox 05/08/18 11:04 97.9 F 73 18 138/66 97 General: Conversant, No Apparent Distress HEENT: Atraumatic, Normocephaly, Mucus Membranes Moist Neck: No JVD, Normal carotid pulses Cardiac: Reg Rate and Rhythm, Normal S1 and S2, No Murmur Lungs: Normal Breath Sounds, No Wheeze, Rales, Rhonchi Neuro: Alert and responsive, No focal deficits noted Abdomen: Soft, Non-Tender Skin: No rashes noted on visualized skin Musculoskeletal: No Chest Wall Tenderness Extremities: No Clubbing, No Cyanosis, No Edema, Normal Pulses Results 05/07/18 04:12 05/07/18 04:12 - Imaging and Cardiology Echo: report reviewed Cardiac cath: report reviewed - EKG Interpretation EKG results cardiology: personally reviewed Consult Discharge Plan - Plan Referrals: Jovanni Stevens MD [Primary Care Provider] - 05/14/18 11:30 am () <Heri Pack - Last Filed: 05/08/18 16:15> Date of Encounter: 05/08/18 - Attending Attestation I have personally performed a face to face evaluation on this patient. I have reviewed and agree with the care plan. History and Exam by me shows: Mostly nocturnal bradycardia. Symptoms mostly correlate with mild sinus fabricio. No indication for intervention at this time, can fu as outpt. Assessment and Plan Discussion w patient/family: The assessment and plan as outlined above was discussed with the patient and/or family members who expressed understanding and agreement. All questions were answered. Thank you for involving us in the care of your patient. Please call with any questions. History of Present Illness History of present illness: Mr. Mark is a 53 year old male All Systems Review: The remainder of the systems were reviewed and are negative Physical Examination Vital Signs, Last 4 Hours Temp Pulse Resp BP Pulse Ox 05/08/18 14:36 98.1 F 71 17 151/89 95 Results 05/07/18 04:12 05/07/18 04:12
--- NOTE | 2018-05-08 17:28 | Discharge Summary ---
- NOTES TO OUTPATIENT PROVIDER Notes to Outpatient Provider: Patient presented with chest pain rule out and symptomatic bradycardia. ACS rule out reveals normal coronaries. Symptomatically bradycardia thought to because by lithium. [place] held throughout stay and heart rate improved average HR in the 70s. The patient is taking lithium due to history of bipolar disorder. Date of Encounter: 05/08/18 Time of Encounter: 17:22 - Discharge Diagnosis (1) Chest pain Status: Acute Qualifiers: Chest pain type: unspecified Qualified Code(s): R07.9 - Chest pain, unspecified (2) Bipolar disorder Status: Acute Qualifiers: Active/Remission status: currently active Current episode severity: unspecified Qualified Code(s): F31.60 - Bipolar disorder, current episode mixed, unspecified (3) Bradycardia Status: Acute Hospital course: Mr. Mark is a 53 year old male - Time Spent with Patient Total time spent providing and/or coordinating discharge services: - Discharge Medications Home Medications: ALPRAZolam [Xanax 1 MG Tablet] 1 mg PO BID PRN 05/06/18 [History] Lisinopril [Zestril] 5 mg PO DAILY 05/06/18 [History] Omeprazole [PriLOSEC] 20 mg PO DAILY 05/06/18 [History] [place] Carbonate ER [Lithobid] 600 mg PO QAM 05/07/18 [History] [place] Carbonate ER [Lithobid] 900 mg PO HS 05/07/18 [History] Allergies/Adverse Reactions: 3 Allergy/AdvReac Type Severity Reaction Status Date / Time No Known Allergies Allergy Unverified 01/13/18 08:30 Date of admission: 05/06/18 18:32 Primary care physician: Jovanni Stevens MD Consults: 05/07/18 06:51 Consult to Cardiology [CONS] Routine Comment: Consulting Provider: Cardiology Sarahy Reason for Consult: Bradycardia and chest pain with recent stress test and echocardiogram. Patient also has been on lithium which could contribute to bradycardia as well. Call Completed: No 05/08/18 14:33 Consult to Electrophysiology (EP) [CONS] Routine Consulting Provider: Electrophysiology Sarahy Reason for Consult: bradycardia Call Completed: Yes - Constitutional Vitals: Temp Pulse Resp BP Pulse Ox 98.1 F 71 17 151/89 95 05/08/18 14:36 05/08/18 14:36 05/08/18 14:36 05/08/18 14:36 05/08/18 14:36 General appearance: Present: cooperative, A&O X 3, pleasant, no acute distress, answers questions appropriately - Patient Status Condition: Good - Discharge Instructions Follow Up With: Jovanni Stevens MD [Primary Care Provider] - 05/14/18 11:30 am ()
--- NOTE | 2018-05-08 18:09 | Internal Med Progress Note ---
Hospitalist Progress Note - Encounter Date of Encounter: 05/08/18 Time of Encounter: 18:05 - Subjective Interval History: No acute changes and patient condition overnight - Exam Vitals: Temp Pulse Resp BP Pulse Ox 98.1 F 71 17 151/89 95 05/08/18 14:36 05/08/18 14:36 05/08/18 14:36 05/08/18 14:36 05/08/18 14:36 Exam: PHYSICAL EXAMINATION: GENERAL: The patient is a well-developed, well-nourished male in no apparent distress. He is alert and oriented x3. HEENT: Head is normocephalic and atraumatic. Extraocular muscles are intact. Pupils are equal, round, and reactive to light and accommodation. NECK: Supple. No carotid bruits. No lymphadenopathy or thyromegaly. LUNGS: Clear to auscultation b/l ap&l. HEART: Irregular rate and rhythm, S1, S2, without murmur. ABDOMEN: Soft, nontender, and nondistended. Positive bowel sounds. No hepatosplenomegaly was noted. EXTREMITIES: Without any cyanosis, clubbing, rash, lesions or edema. NEUROLOGIC: Cranial nerves II through XII are grossly intact. - Assessment and Plan (1) Chest pain Current Visit: Yes Status: Ruled-out Assessment and Plan: Presented to the ED with chest pain; associated signs and symptoms include shortness of breath, diaphoresis, fatigue and dizziness Resolved after 1 dose of nitroglycerin CG without any ischemic changes Troponins negative 3 less than 0.03 Noted to have symptomatic bradycardia heart rate in the 30s-50s Has had a recent workup including stress test and echocardiogram ; stress test without ischemic changes 05/07--clinically the patient is stable, denies any chest pain, shortness of breath. He does admit to weakness fatigue and dizziness with activity. Cardiology to see in consultation; appreciate recommendations. Discussed with Dr. Handy this morning. Continue machine overhauler. Holding lithium until cardiology evaluation. [place] level within therapeutic range. 05/08--ACS ruled out. Coronary arteries angiographically normal [facility]. TSH normal. Heart rate improved today 60-70s. Continued concerns for nocturnal bradycardia. Continue telemetry overnight. Concerns for lithium contributing to bradycardia. Consult psychiatry. Patient has a history of bipolar has been taking lithium for greater than 20 years. Avoid AV sandeep blockers (2) Bipolar disorder Current Visit: Yes Status: Acute Assessment and Plan: Takes lithium for bipolar disorder May be contributing to symptomatic bradycardia, currently being held Consults psychiatry for recommendations regarding bipolar medications (3) Bradycardia Current Visit: Yes Status: Acute Assessment and Plan: symptomatic bradycardia hr in the high 30's a.d 50's overnight; mostly nocturnal Heart rate improved throughout the day 60-70; remains hemodynamically stable cont tele consult to cardio continue holding lithium Avoid AV sandeep blockers DVT Prophylaxis: SC heparin - Time Spent with Patient Total time spent is greater than 50% in coordination of care (as documented) at patient's floor/unit and/or counseling patient: less than 15 minutes Plan of Care Discussed with: patient Internal Medicine: Result - Labs CBC & Chem 7: 05/07/18 04:12 05/07/18 04:12 Consult Discharge Plan - Plan Referrals: Jovanni Stevens MD [Primary Care Provider] - 05/14/18 11:30 am () (1) Chest pain Qualifiers: Chest pain type: unspecified Qualified Code(s): R07.9 - Chest pain, unspecified (2) Bipolar disorder Qualifiers: Active/Remission status: currently active Current episode severity: unspecified Qualified Code(s): F31.60 - Bipolar disorder, current episode mixed , unspecified
[2018-05-09 05:14] LABS: Basophils % 0.7 %; Eosinophils # 0.2 K/mcL (0.0-0.6); Eosinophils % 3.5 %; Hematocrit 41.5 % (37.5-50.1); Hemoglobin 13.9 g/dL (12.9-16.9); Immature Granulocytes % 0.2 % (0-4); Lymphocytes # 1.4 K/mcL (0.6-4.6); Lymphocytes % 22.7 %; Mean Corpuscular HGB Conc 33.5 g/dL (31.6-35.5); Mean Corpuscular Hemoglobin 30.3 pg (28.0-33.3); Mean Corpuscular Volume 90.4 fL (83.0-100.0); Mean Platelet Volume 10.4 fL (9.4-12.4); Monocytes # 0.4 K/mcL (0.0-1.3); Monocytes % 6.1 %; Neutrophils # 4.1 K/mcL (1.6-8.9); Platelet Count 154 K/mcL (140-400); Red Blood Count 4.59 M/mcL (4.19-5.50); Red Cell Distribution Width 12.5 % (11.5-14.5); Segmented Neutrophils % 66.8 %
[2018-05-09 05:31] LABS: BUN/Creatinine Ratio 10 (6-26); Blood Urea Nitrogen 13 mg/dL (6-20); Calcium 10.2 mg/dL (8.6-10.3); Carbon Dioxide 23 mEq/L (23-29); Chloride 112 mEq/L (98-107); Glucose 118 mg/dL (70-105); Osmolality,Calculated 289 (280-300); Potassium 3.6 mEq/L (3.5-5.1); Sodium 139 mEq/L (136-145); eGFR For Non-African Americans 58 (> 60)
[2018-05-09] MEDS: *HR* Heparin 5,000 UNIT/ML VIAL SQ SCH (06:11)
[2018-05-09] MEDS: ALPRAZolam 1 MG TABLET PO PRN (08:37)
[2018-05-09 12:01] VITALS: BP 132/84
--- NOTE | 2018-05-09 14:23 | Consult Note ---
Date of Encounter: 05/09/18 Time of Encounter: 14:20 Assessment & Recommendation (1) Bipolar disorder Current visit: Yes Status: Acute Assessment & Recommendation: Would not normally recommend starting a new medication at time of discharge but since client has follow-up scheduled with psychiatrist later this week can go ahead and start Depakote 500mg BID. present and both she and client state he will be seen this . Would recommend a script for a one week supply along with a lab slip to have a VPA level drawn in five days. He should take results to appointment with psychiatrist this week. Risks and benefits discussed with client and he is agreeable to trying Depakote as a replacement to [place] for mood stabilization. Qualifiers: Active/Remission status: currently active Current episode severity: unspecified Qualified Code(s): F31.9 - Bipolar disorder, unspecified History of Present Illness Requesting Physician: Cher Roman MD Reason for consult: medication change History of present illness: Mr. Mark is a 53 year old male with Bipolar Disorder who has been on a combination of [place] and Xanax since the age of 26y/o. Compliant with meds. Regular follow-up. Never hospitalized. Developed cardiac conduction problems and [place] stopped this admission. Needs replacement for mood stabilization. Has follow-up with psychiatrist on this week. No evidence of psychosis. Highly anxious but otherwise stable. Denies SI/HI. CC: Cher Roman MD Past Med Surg Social Fam HX - Past Medical History Medical history: hypertension, other ([place]) - Past Psychiatric History Psychiatric history: Reports: bipolar Family psychiatric history: Unknown Family History of Suicide: Unknown - Past Surgical History Surgical History: appendectomy - Social History Smoking Status: Former smoker Smokeless Tobacco Status: No Alcohol use: none Drug use: none - Family History Mother Living Status: Age at : 74 Hx Family Endocrine Disorder: Yes (Diabetes) Father Age: 80 Living Status: Still Living Hx Family Cancer: Yes (prostate cancer) Medications & Allergies ALPRAZolam [Xanax 1 MG Tablet] 1 mg PO BID PRN 05/06/18 [History] Lisinopril [Zestril] 5 mg PO DAILY 05/06/18 [History] Omeprazole [PriLOSEC] 20 mg PO DAILY 05/06/18 [History] [place] Carbonate ER [Lithobid] 600 mg PO QAM 05/07/18 [History] [place] Carbonate ER [Lithobid] 900 mg PO HS 05/07/18 [History] 3 Allergy/AdvReac Type Severity Reaction Status Date / Time No Known Allergies Allergy Unverified 01/13/18 08:30 Review of Systems Constitutional: Denies: fever, chills, weakness, weight change Eyes: Denies: eye pain, vision change Ears, Nose, Throat: Denies: ear pain, throat pain, dental pain, hearing loss, congestion Cardiovascular: Denies: chest pain, palpitations, dyspnea on exertion Respiratory: Denies: cough, dyspnea, wheezes Gastrointestinal: Denies: abdominal pain, nausea, vomiting, diarrhea, constipation Genitourinary male: Denies: urgency, dysuria, frequency, genital lesions Musculoskeletal: Denies: joint swelling, joint pain Integumentary: Denies: rash, lesions, pruritus Neurological: Denies: headache, weakness, numbness, memory loss Endocrine: Denies: fatigue, heat or cold intolerance Hematologic/Lymphatic: Denies: easy bruising, lymphadenopathy Allergic/Immunologic: Denies: urticaria, itchy eyes Psychiatry Exam - Constitutional Vitals: Temp Pulse Resp BP Pulse Ox 98.2 F 64 16 132/84 98 05/09/18 12:00 05/09/18 12:00 05/09/18 12:00 05/09/18 12:00 05/09/18 12:00 General appearance: age & developmentally appropriate, well-groomed, well- nourished - Musculoskeletal Gait: normal Station: relaxed Strength & Tone: normal for patient - Psychiatric Patient Orientation: Yes Person, Yes Time, Yes Place Level of alertness: Alert Behavior: calm, cooperative Psychomotor activity: Normal Eye Contact: Maintains Eye Contact Mood Description: Anxious Affect description: congruent with mood Speech Volume: Normal Speech pattern: normal rhythm, normal tone, pressured Language & Vocabulary: consistent with education Thought Process: Linear, Goal Oriented Thought Content: No Suicidal ideation, No Homicidal ideation, No Overt delusions Perceptual Disturbances: No Auditory hallucinations, No Visual hallucinations Attention Span Ability: Capable of Focused Attention Memory Description: Grossly Intact Patient Reliability: Reliable Historian Fund of knowledge: Yes abstraction ability, Yes aware of current events Intelligence Estimate: Average Judgment: Fair Insight: Partial Results - Labs Labs: Laboratory Last Values WBC 6.1 K/mcL (4.3-11.1) 05/09/18 03:46 RBC 4.59 M/mcL (4.19-5.50) 05/09/18 03:46 Hgb 13.9 g/dL (12.9-16.9) 05/09/18 03:46 Hct 41.5 % (37.5-50.1) 05/09/18 03:46 MCV 90.4 fL (83.0-100.0) 05/09/18 03:46 MCH 30.3 pg (28.0-33.3) 05/09/18 03:46 MCHC 33.5 g/dL (31.6-35.5) 05/09/18 03:46 RDW 12.5 % (11.5-14.5) 05/09/18 03:46 Plt Count 154 K/mcL (140-400) 05/09/18 03:46 MPV 10.4 fL (9.4-12.4) 05/09/18 03:46 Immature Gran % 0.2 % (0-4) 05/09/18 03:46 Seg Neutrophils % 66.8 % 05/09/18 03:46 Lymphocytes % 22.7 % 05/09/18 03:46 Monocytes % 6.1 % 05/09/18 03:46 Eosinophils % 3.5 % 05/09/18 03:46 Basophils % 0.7 % 05/09/18 03:46 Neutrophils # 4.1 K/mcL (1.6-8.9) 05/09/18 03:46 Lymphocytes # 1.4 K/mcL (0.6-4.6) 05/09/18 03:46 Monocytes # 0.4 K/mcL (0.0-1.3) 05/09/18 03:46 Eosinophils # 0.2 K/mcL (0.0-0.6) 05/09/18 03:46 Basophils # 0.0 K/mcL (0.0-0.2) 05/09/18 03:46 Sodium 139 mEq/L (136-145) 05/09/18 03:46 Potassium 3.6 mEq/L (3.5-5.1) 05/09/18 03:46 Chloride 112 mEq/L (98-107) H 05/09/18 03:46 Carbon Dioxide 23 mEq/L (23-29) 05/09/18 03:46 BUN 13 mg/dL (6-20) 05/09/18 03:46 Creatinine 1.30 mg/dL (0.70-1.30) 05/09/18 03:46 Est GFR ( Amer) > 60 (> 60) 05/09/18 03:46 Est GFR (Non-Af Amer) 58 (> 60) L 05/09/18 03:46 BUN/Creatinine Ratio 10 (6-26) 05/09/18 03:46 Glucose 118 mg/dL (70-105) H 05/09/18 03:46 Calculated Osmolality 289 (280-300) 05/09/18 03:46 Calcium 10.2 mg/dL (8.6-10.3) 05/09/18 03:46 Troponin I < 0.03 ng/mL (< 0.04) 05/07/18 04:12 B-Natriuretic Peptide 6 pg/mL (Less than 100) 05/06/18 16:45 TSH 2.855 mcIU/mL (0.340-5.600) 05/07/18 04:12 [place] 1.0 mEq/L (0.6-1.2) 05/06/18 22:23 Consult Discharge Plan - Plan Referrals: Jovanni Stevens MD [Primary Care Provider] - 05/14/18 11:30 am ()
--- NOTE | 2018-05-09 15:33 | Discharge Summary ---
- NOTES TO OUTPATIENT PROVIDER Notes to Outpatient Provider: Patient presented with chest pain, ACS rule out. ACS successfully ruled out C with normal coronaries. During stay found to have symptomatic bradycardia thought to be caused by lithium. [place] levels were normal however lithium dose was held and bradycardia resolved. Psychiatry consult throughout stay and patient was placed on Depakote 500 mg twice a day. Please ensure follow-up with psychiatrist within 1 week of DC. He is to have labs drawn for VPA level in 5 days. He is only given a 1 week prescription. Additionally, he is instructed to follow-up with PCP within 1 week of discharge. Has been having episodes of bradycardia and was recently on a 2 week event monitor. Results still pending. Orders not resulted at time of discharge: Pending orders 05/10/18 04:00 Basic Metabolic Panel AM 0400 Complete Blood Count [HEME] AM 0400 05/11/18 04:00 Basic Metabolic Panel AM 0400 Complete Blood Count [HEME] AM 0400 Date of Encounter: 05/09/18 Time of Encounter: 15:30 - Discharge Diagnosis (1) Chest pain Priority: Primary Status: Ruled-out Assessment and Plan: Presented to the ED with chest pain; associated signs and symptoms include shortness of breath, diaphoresis, fatigue and dizziness Resolved after 1 dose of nitroglycerin CG without any ischemic changes Troponins negative 3 less than 0.03 Noted to have symptomatic bradycardia heart rate in the 30s-50s Has had a recent workup including stress test and echocardiogram ; stress test without ischemic changes 05/09--ACS ruled out. Coronary arteries angiographically normal [facility]. TSH normal. Heart rate improved today 60-70s. Overnight in the wooden tank erector the patient was having some episodes of asymptomatic bradycardia with heart rate in the 50s. Given that he was asymptomatic and remains hemodynamically stable he is okay for discharge. Discussed with cardiology yesterday who agrees. Avoid AV sandeep blockers. If bradycardia persists consider outpatient referral to cardiology. Event monitor results still pending Qualifiers: Chest pain type: unspecified Qualified Code(s): R07.9 - Chest pain, unspecified (2) Bipolar disorder Priority: Secondary Status: Acute Assessment and Plan: [place] discontinued. Patient started on Depakote 500 mg twice a day per psychiatry during inpatient consultation. He is to have follow-up with psychiatrist and 5-7 days. Additionally, he is to have a VPA level drawn in 5 days. Qualifiers: Active/Remission status: currently active Current episode severity: unspecified Qualified Code(s): F31.9 - Bipolar disorder, unspecified (3) Bradycardia Priority: Secondary Status: Acute Assessment and Plan: symptomatic bradycardia hr in the high 30's a.d 50's overnight; mostly nocturnal Heart rate improved throughout the day 60-70; remains hemodynamically stable cont tele consult to cardio continue holding lithium Avoid AV sandeep blockers 05/09--on day of the DC patient still having some intermittent bradycardia however rate has not gone below the 50s. Patient remains asymptomatic. Should bradycardia persist consider follow-up with cardiology in the outpatient setting. Avoid AV sandeep blockers Hospital course: Mr. Mark is a 53 year old male who presents with chest pain. Underwent ACS rule out. ACS successfully ruled out, LHC with normal coronaries. During stay found to have symptomatic bradycardia thought to be caused by lithium. [place] levels were normal however lithium dose was held and bradycardia resolved. Senior Writer Dr. Heri Pack consulted and recommends avoiding AV sandeep lockers. Given resolution of symptomatically bradycardia patient okay for discharge. Psychiatry consult throughout stay and patient was placed on Depakote 500 mg twice a day. Please ensure follow-up with psychiatrist within 1 week of DC. He is to have labs drawn for VPA level in 5 days. He is only given a 1 week prescription. Additionally, he is instructed to follow-up with PCP within 1 week of discharge. Discharge discussed with: patient, family, nurse, cardiology clinical consultant - Time Spent with Patient Total time spent providing and/or coordinating discharge services: Less than 30 minutes - Discharge Medications Prescriptions: Divalproex (12 HR) [Depakote (12 HR)] 500 mg PO BID 7 Days #14 tablet. Home Medications: ALPRAZolam [Xanax 1 MG Tablet] 1 mg PO BID PRN 05/06/18 [History] Lisinopril [Zestril] 5 mg PO DAILY 05/06/18 [History] Omeprazole [PriLOSEC] 20 mg PO DAILY 05/06/18 [History] Divalproex (12 HR) [Depakote (12 HR)] 500 mg PO BID 7 Days #14 tablet. [Rx] Allergies/Adverse Reactions: 3 Allergy/AdvReac Type Severity Reaction Status Date / Time No Known Allergies Allergy Unverified 01/13/18 08:30 Date of admission: 05/06/18 18:32 Primary care physician: Jovanni Stevens MD Consults: 05/07/18 06:51 Consult to Cardiology [CONS] Routine Comment: Consulting Provider: Card[facility] [place] Reason for Consult: Bradycardia and chest pain with recent stress test and echocardiogram. Patient also has been on lithium which could contribute to bradycardia as well. Call Completed: No 05/08/18 14:33 Consult to Electrophysiology (EP) [CONS] Routine Consulting Provider: Electrophysiology [place] Reason for Consult: bradycardia Call Completed: Yes 05/08/18 18:02 Consult to Psychiatry [CONS] Routine Consulting Provider: Psychiatry [place] Reason consult: Medication recommendation Other reason and/or additional details: History of bipolar. Has been taking lithium for greater than 20 years. Concerns for lithium causing symptomatic bradycardia; presented with bradycardia, admitting physician. [place] and was held throughout stay and bradycardia resolved. Time Notified: 18:04 Call Completed: No Discharging clinician: Deonte Osborne Anticipated date of discharge: 05/09/18 - Constitutional Vitals: Temp Pulse Resp BP Pulse Ox 98.2 F 64 16 132/84 98 05/09/18 12:00 05/09/18 12:00 05/09/18 12:00 05/09/18 12:00 05/09/18 12:00 General appearance: Present: cooperative, A&O X 3, pleasant, no acute distress, answers questions appropriately Exam: PHYSICAL EXAMINATION: GENERAL: The patient is a well-developed, well-nourished male in no apparent distress. He is alert and oriented x3. HEENT: Head is normocephalic and atraumatic. Extraocular muscles are intact. Pupils are equal, round, and reactive to light and accommodation. NECK: Supple. No carotid bruits. No lymphadenopathy or thyromegaly. LUNGS: Clear to auscultation b/l ap&l. HEART: Irregular rate and rhythm, S1, S2, without murmur. ABDOMEN: Soft, nontender, and nondistended. Positive bowel sounds. No hepatosplenomegaly was noted. EXTREMITIES: Without any cyanosis, clubbing, rash, lesions or edema. NEUROLOGIC: Cranial nerves II through XII are grossly intact. - Patient Status Disposition: Home, Self-Care Condition: Good Functional capacity at discharge: independent ambulation Overall status at discharge: patient is back to baseline - Discharge Instructions Follow Up With: Jovanni Stevens MD [Primary Care Provider] - 05/14/18 11:30 am () - Diet and Activity Activity: increase activity as tolerated, resume usual activities as tolerated Diet: diabetic diet, low fat, low cholesterol, low salt diet
== END 2018-05-09 15:59 | disposition home or self-care (01) ==
LOC: 3BNU 16:29 → EMEROOARM 16:29 → 3BNU 18:50
PROVIDERS: ADMIT Internal Medicine; ATTEND Internal Medicine